=== PATIENT | female | born 1985 | race Caucasian/White ===

== ENCOUNTER 2017-11-21 03:49 | Emergency (ER) | payer OTHER ==
[~2017-11-21] VITALS: Ht 162.6 cm; Wt 68.0 kg
[2017-11-21 03:55] VITALS: BP_SYST 121
[2017-11-21 04:35] VITALS: BP_SYST 121
== END 2017-11-21 04:35 ==
LOC: SED 03:49
DX: Z04.1 Encounter for examination and observation following transport accident (principal); Z86.2 Personal history of diseases of the blood and blood-forming organs and certain disorders involving the immune mechanism; V89.2XXA Person injured in unspecified motor-vehicle accident, traffic, initial encounter; Y93.89 Activity, other specified; Y92.89 Other specified places as the place of occurrence of the external cause; Y99.8 Other external cause status
CPT/HCPCS: 99283